=== PATIENT | male | born 1965 | race Caucasian/White ===

== ENCOUNTER 2016-11-19 14:54 | Emergency (ER) | payer MEDICAID ==
[~2016-11-19] VITALS: Ht 172.7 cm; Wt 91.0 kg
[2016-11-19 15:13] VITALS: BP 120/77
== END 2016-11-19 22:05 | disposition left against medical advice (07) ==
LOC: ER 21:49
DX: L29.9 Pruritus, unspecified (principal); Z53.21 Procedure and treatment not carried out due to patient leaving prior to being seen by health care provider